=== PATIENT | female | born 1965 | race Caucasian/White ===

== ENCOUNTER → 2019-02-24 13:46 | Outpatient (CLI) | payer MEDICAID ==
[2013-07-27 13:18] VITALS: BMI 32.5
[~2019-02-24 13:46] MED LIST: ALTACE10 MG PO; CLEOCIN HCL300 MG PO; DEMEROL 50 M50 MG/ML PO; DEMEROL50 MG PO; GLUCOPHAGE500 MG PO; HYDROCHLOROTHIA25 MG PO; NORVASC10 MG PO; PRAVACHOL80 MG PO; TENORMIN50 MG PO; VENTOLIN HFA18 GM INH; ZOLOFT50 MG PO
== END | disposition home or self-care (01) ==
LOC: D.CT 13:46
PROVIDERS: ATTEND Family Medicine
DX: E27.9 Disorder of adrenal gland, unspecified (principal)

== ENCOUNTER → 2019-08-31 09:20 | Outpatient (CLI) | payer MEDICAID ==
[2013-07-27 13:18] VITALS: BMI 32.5
== END | disposition home or self-care (01) ==
LOC: D.CT 08-30 10:30
PROVIDERS: ATTEND Family Medicine
DX: E27.8 Other specified disorders of adrenal gland (principal)